=== PATIENT | female | born 1980 | race African-American/Black ===

== ENCOUNTER 2017-01-04 10:39 | Outpatient (CLI) | payer BC ==
[2016-01-15 11:18] VITALS: BP 124/68
[2017-01-04 11:27] LABS: eGFR (African) > 60; eGFR (Non-African) > 60
== END 2017-01-04 10:40 ==
LOC: LAB 10:39
PROVIDERS: ATTEND Family Medicine
DX: E78.2 Mixed hyperlipidemia (principal); E10.9 Type 1 diabetes mellitus without complications
CPT/HCPCS: 36415; 80053; 80061; 82043; 83036

== ENCOUNTER 2017-04-20 09:32 | Outpatient (CLI) | payer BC ==
[2016-01-15 11:18] VITALS: BP 124/68
== END 2017-04-20 09:33 ==
LOC: LAB 09:32
PROVIDERS: ATTEND Family Medicine
DX: E11.9 Type 2 diabetes mellitus without complications (principal)
CPT/HCPCS: 36415; 83036

== ENCOUNTER 2017-07-24 09:19 | Outpatient (CLI) | payer BC, OTHER ==
[2016-01-15 11:18] VITALS: BP 124/68
== END 2017-07-24 09:20 ==
LOC: LAB 09:19
PROVIDERS: ATTEND Family Medicine
DX: E11.9 Type 2 diabetes mellitus without complications (principal); Z79.4 Long term (current) use of insulin
CPT/HCPCS: 36415; 82043; 83036

== ENCOUNTER 2017-12-28 08:13 | Outpatient (CLI) | payer BC ==
[2016-01-15 11:18] VITALS: BP 124/68
[2017-12-28 09:01] LABS: eGFR (African) > 60; eGFR (Non-African) > 60
== END 2017-12-28 08:14 ==
LOC: LAB 08:13
PROVIDERS: ATTEND Internal Medicine Endocrinology, Diabetes & Metabolism
DX: E11.9 Type 2 diabetes mellitus without complications (principal)
CPT/HCPCS: 36415; 80053; 80061; 82043; 83036; 84439; 84443

== ENCOUNTER 2018-07-23 09:24 | Outpatient (CLI) | payer BC, OTHER ==
[2016-01-15 11:18] VITALS: BP 124/68
[2018-07-23 10:53] LABS: eGFR (Non-African) > 60
== END 2018-07-23 09:25 ==
LOC: LAB 09:24
PROVIDERS: ATTEND Family Medicine
DX: Z11.3 Encounter for screening for infections with a predominantly sexual mode of transmission (principal); E11.9 Type 2 diabetes mellitus without complications
CPT/HCPCS: 36415; 80053; 80061; 83036; 87491; 87591

== ENCOUNTER 2019-02-28 09:26 | Outpatient (CLI) | payer OTHER ==
[2016-01-15 11:18] VITALS: BP 124/68
== END 2019-02-28 09:28 ==
LOC: LAB 09:26
PROVIDERS: ATTEND Internal Medicine Endocrinology, Diabetes & Metabolism
DX: E11.9 Type 2 diabetes mellitus without complications (principal)
CPT/HCPCS: 36415; 80053; 80061; 83036

== ENCOUNTER 2019-04-10 14:32 | Outpatient (CLI) | payer BC ==
[2016-01-15 11:18] VITALS: BP 124/68
--- NOTE | 2019-04-11 09:36 | Diagnostic Imaging Report ---
Gerson Jacobson [facility] [id number] [facility] [address] [place] [address]. [id number] Report Submission Date: Apr 10, 2019 4:42:53 PM CDT Patient Study Name: EMI CRAWFORD Date: Apr 10, 2019 4:02:46 PM CDT Modality Type: DX Gender: F Description: L SPINE 2 OR 3 VIEWS : 78 Institution: [facility] Physician: Gerson Jacobson Exam: Lumbar spine. History: Low back pain. AP, lateral and L5-S1 spot view of the lumbar spine are submitted. Five functional lumbar vertebrae are identified. The vertebral body heights and intervertebral disc spaces are adequately maintained. No spondylolisthesis is identified. Impression: No bony abnormality. Electronically signed on Apr 10, 2019 4:42:53 PM CDT by: Guy GOETZ
--- NOTE | 2019-04-19 15:23 | CONSULTATION REPORT ---
DATE OF CONSULTATION: 04/10/2019 CHIEF COMPLAINT: Low back pain. HISTORY OF PRESENT ILLNESS: Ms. Diane Edwards is a 39-year-old female with low back pain with radiation to the left lower extremity as distally as the foot, especially into the left lumbar region and buttock region. The patient states she has had pain for about 6 weeks without known incident. The patient later restated that the pain started after a lifting or cleaning event, moving equipment while at work. The patient denies that this is under Workers Compensation claim. The patient describes this pain as being constant, sharp and burning, particularly into the calf and knee of the left lower extremity. Her pain is aggravated with standing for greater than a few minutes. The pain is improved with lying down or application of heat or ice. Past treatments have not included any surgery. The patient has had an epidural injection done once, on 03/22/2019 at the L5-S1 at [facility] in [place], [place] by Dr. Forrest Morales. The patient states the epidural injection was of minimal benefit for her. The patient has also had some conservative therapy, including vp care management. Medications have included Flexeril 10 mg (which has given her GI upset). She has also been on ibuprofen 800 mg q.8h., Tylenol [id number], and gabapentin 300 mg t.i.d. She is also taking some Topamax for migraine headaches. The patient has had imaging on 03/20/2019 which reveals a left L5-S1 protrusion. PAST MEDICAL HISTORY: 1. Diabetes mellitus. 2. Hypercholesterolemia. 3. Depression. 4. Migraine headaches. 5. GERD. PAST SURGICAL HISTORY: 1. Tubal ligation. 2. Partial hysterectomy. 3. Right knee ACL repair. ALLERGIES: Latex Adhesive tape MEDICATIONS: As mentioned above and also includes the following: Lantus Humalog Simvastatin Feno Losartan Zoloft Topamax Potassium replacement Omeprazole SOCIAL HISTORY: Positive for smoking pack per day. Denies alcohol and drug usage. FAMILY HISTORY: Noncontributory. REVIEW OF SYSTEMS: Significant constitutionally for changes in the sleep/awake cycle. She has occasional shortness of breath, chest pain, nausea and constipation; patient takes a stool softener and is able to move her bowels every other day. She denies any urinary issues. Her weight has increased by about 15 pounds over the last month with changes in her activity level. She denies any skin issues or rash. She denies any visual issues. She has occasional dizziness. She has occasional headaches, 2-3 times per week, with migrainous headaches. She denies memory issues. Additionally, the patient is complaining of significant myofascial spasm. PHYSICAL EXAMINATION: On exam, the patient is 5 feet 9 inches tall and weighs 259 pounds. The patient is awake and alert x3. Vital signs are stable. Heart is regular in rate and rhythm. Lungs have good excursion. Abdomen is soft and nontender. Motor strength is 5/5 upper and lower bilaterally. Sensory system is grossly intact. Tinels sign is negative bilaterally. The patient has positive straight leg raising of the left lower extremity at 80 degrees; negative on the right. The patient has bilateral PSIS tenderness, left side greater than the right. The patient has good lumbar flexion but has significantly diminished lumbar extension with tenderness at 10 degrees extension. IMAGING: As mentioned above. DIAGNOSES: 1. Herniated nucleus pulposus, L5-S1. 2. Lumbar disc displacement. 3. Diabetes mellitus with diabetic polyneuropathy. PLAN AT THIS TIME: 1. We will increase this patients gabapentin to 400 mg q.8h. 2. I have asked the patient to get an x-ray of the lumbar spine to further evaluate her lumbar facet joints. 3. I would get this patient scheduled for a lumbar epidural steroid injection #2 on the left side at L5-S1. It should be noted, in the patients description of her lumbar epidural steroid injection, that following the procedure she had profound numbness and/or weakness. It is unclear whether or not the patient had experienced any degree of a wet tap. I do not have the results of that procedure; we will request this. I have explained to the patient that I believe it would be worthwhile to retrial this procedure for her, considering her history, physical and imaging results. Our goal for this patient will be to help diminish her level of pain and keep her active and working, trying to improve her activities of daily living and quality of life, and diminishing the need for any chronic medication requirements. I would, however, consider using a smaller dose of Depo-Medrol for her, as to not further aggravate or worsen her diabetic condition. I would like to thank Dr. Hopper for referral of this patient to us at this time. I look forward to seeing Ms. Edwards in 2 weeks time. Sincerely, Vincent Jacobson M.D. (dictated but not read) computer generated signature MN/pre cc: Estef[place] [address] Phone: Fax: NOTE: Time spent with this patient today was in excess of 45 minutes. MTDD
== END 2019-04-10 15:30 ==
LOC: OUT 14:32
PROVIDERS: ATTEND Pain Medicine Interventional Pain Medicine
DX: M51.37 Other intervertebral disc degeneration, lumbosacral region (principal); E11.40 Type 2 diabetes mellitus with diabetic neuropathy, unspecified
CPT/HCPCS: 72100; 99204

== ENCOUNTER 2019-05-08 11:23 | Outpatient (CLI) | payer BC ==
[2016-01-15 11:18] VITALS: BP 124/68
[~2019-05-08 11:23] MED LIST: 0.9 % SODIUM CHLORIDE PF 10 ML VIAL IJ ONE; Lidocaine 1% 5ml 10 MG/ML VIAL ONE; methylPREDNISolone ACETATE 40 MG/ML VIAL IM ONE
--- NOTE | 2019-05-13 05:53 | Operative Note ---
PROCEDURE: Lumbar Epidural Steroid Injection (left L5-S1 level), #2 DATE OF PROCEDURE: 05/08/2019 CHIEF COMPLAINT: Low back pain. HISTORY OF PRESENT ILLNESS: Ms. Edwards returns for her second lumbar epidural steroid injection. The patient, in fact, had her first lumbar epidural steroid injection done in [place], [place] a few weeks ago. The patient gave a description to me of excessive numbness and weakness following the first procedure in [place], [place]. It is unclear whether or not she had any intrathecal absorption or spread of local anesthetic to cause this. When I had initially interviewed the patient for the initial History and Physical, the patient seemed to have a great deal of trepidation regarding a second performance of this procedure. I have spoken with the patient in great detail today, discussing many things, in particular the procedure in great detail. I believe the patient appears to be much more relaxed today and is here and willing to have the procedure re-trialed. Her preprocedure pain level is noted to be 6/10. Her pain radiates from the distal lumbosacral region down into the distal left lower extremity as far as the foot and ankle. Imaging does reveal lumbar disc displacement at the L5-S1 level. PHYSICAL EXAMINATION: The patient is awake and alert. Vital signs are stable. Heart is regular in rate and rhythm. Eyes PERRLA. Throat clear. Trachea midline. Lungs have good excursion. Abdomen is soft and nontender, obese. The patient has distal lumbosacral tenderness and left PSIS tenderness noted. PREPROCEDURE DIAGNOSES: 1. Lumbar radiculopathy. 2. Lumbar disc displacement, L5-S1. 3. Diabetes mellitus and diabetic peripheral neuropathy. POSTPROCEDURE DIAGNOSES: 1. Lumbar radiculopathy. 2. Lumbar disc displacement, L5-S1. 3. Diabetes mellitus and diabetic peripheral neuropathy. PLAN: We will proceed with the planned procedure as mentioned above. DESCRIPTION OF PROCEDURE: Consent: The patients condition and proposed procedure, risks and alternative interventions were discussed with the patient/responsible libertarian, including the risk of bleeding, infection, sensory and/or motor damage, and the potential for efficacy, non-efficacy, and increased pain. It was stressed that the purpose of this injection is for diagnostic and prognostic purposes as well as therapeutic purposes. The patients/responsible partys questions were answered. The patient/responsible libertarian voiced understanding and wished to proceed with the procedure. Pre-Procedure: Name and Date of were verified, confirmed the planned procedure with the patient, reviewed Discharge Instructions and a procedure consent was signed. The patient was brought to Procedure Room 1, a fluoroscopic procedure suite, and was placed in the prone position. The skin overlying the injection site was prepped and draped in an aseptic fashion. Time-Out Procedural Pause: Time-out procedural pause was performed, verifying the correct patient, medical record number, allergies and surgical site. This was performed immediately prior to the beginning of the procedure. All present in the room did agree this was correct. Procedure: The lumbar epidural space was prepped and draped in the usual sterile manner. The T12 through L1 interspace down to the L5-S1 interspace was visualized under fluoroscopy. The left L5-S1 interspace was identified and marked on the skin with a surgical marker. Local anesthetic was then infiltrated at that level via a 25-gauge 1.5-inch needle with 0.5% lidocaine. A 20-gauge Touhy needle was placed. Loss of resistance with Saline via glass syringe was found easily with frequent negative aspirations with imaging in AP, contralateral oblique and lateral projections. A solution containing 5 mL of 0.5% lidocaine MPF with 40 mg of Depo-Medrol was easily infiltrated with frequent negative aspirations. This was done under fluoroscopic guidance throughout the procedure with both AP and lateral imaging as well as contralateral oblique imaging. NOTE: A decreased dose of Depo-Medrol (40 mg) was used for this procedure secondary to diabetes. Following injection of the above material, the needles were removed. The area was cleansed and bandaged and the patient was then brought to the Recovery Room in stable condition. The patient tolerated the procedure well with no untoward events or complaints. The patients pain has resolved completely. She has no complaints of numbness or weakness following the procedure. The patients preprocedure pain level was 6/10. The patients postprocedure pain level was 0/10. POST-PROCEDURE INSTRUCTIONS: We would anticipate going ahead with a third lumbar epidural steroid injection in this series. This can be performed in the next 2-3 weeks time. The patient will need to have preoperative authorization from her insurance company for this, as she needed on this visit today. I am very pleased to see this improvement and good result for Ms. Edwards today. The patient appears to be much more at ease at this time. We hope the best for Ms. Edwards. Vincent Jacobson M.D. (dictated but not read) computer generated signature CHRISTI/binh ADDENDUM: It should also be noted that I have had an extensive discussion with the patient regarding a diabetic diet, exercise and weight loss for her. I believe that this will be beneficial for the patient, in the long-run and in the short-run. CHRISTI/binh SOFY
== END 2019-05-08 13:07 ==
LOC: OUT 11:23
PROVIDERS: ATTEND Pain Medicine Interventional Pain Medicine
DX: M51.17 Intervertebral disc disorders with radiculopathy, lumbosacral region (principal); M54.5 Low back pain; E11.40 Type 2 diabetes mellitus with diabetic neuropathy, unspecified
CPT/HCPCS: 62323; J1030